=== PATIENT | male | born 1965 | race Caucasian/White ===

== ENCOUNTER 2024-03-03 10:02 | Emergency (ER) | payer MEDICARE ==
[2024-03-03] MEDS ORDERED: Ondansetron PF 4 MG/2 ML Vial ONE (10:36)
[2024-03-03 10:45] LABS: #Basophils 0.05 10x3/uL (0.0-0.2); #Eosinphils Less than 0.03 10x3/uL (0.0-0.7); %Basophils 0.6 % (0.0-1.0); %Lymphocytes 9.6 % (21.0-51.0); %Monocytes 3.8 % (0.0-10.0); %Neutrophils 85.7 % (42.0-75.0); Hematocrit 53.8 % (42.0-52.0); Hemoglobin 17.8 g/dL (14.0-18.0); Mean Corpuscular HGB CONC 33.1 g/dL (32.0-36.0); Mean Corpuscular Hemoglobin 32.4 pg (27.0-31.0); Mean Corpuscular Volume 97.8 fL (78.0-98.0); Platelet Count 263 10x3/uL (130-400); RBC Distribution Width 13.8 % (11.5-14.5)
[2024-03-03 11:20] LABS: ALT (SGPT) 12 U/L (8-55); AST (SGOT) 18 U/L (5-34); Albumin 4.2 g/dL (3.5-5.0); Alkaline Phosphatase 69 U/L (40-110); Anion Gap 16 mmol/L (10-20); BUN (Urea Nitrogen) 13 mg/dL (8.4-25.7); Bilirubin, Total 0.5 mg/dL (0.2-1.2); Calc. Creatinine Clearance 0 mL/min (70-130); Calcium 10.2 mg/dL (7.8-10.44); Carbon Dioxide 27 mmol/L (22-29); Chloride 103 mmol/L (98-107); Estimated GFR 79; Globulin 3.7 g/dL (2.4-3.5); Glucose 142 mg/dL (70-105); Lipase 16 U/L (8-78); Potassium 4.5 mmol/L (3.5-5.1); Protein, Total 7.9 g/dL (6.0-8.3); Sodium 141 mmol/L (136-145)
[2024-03-03] MEDS ORDERED: Iopamidol-370 76% 500 ML MDV (1 ML CHARGE) ONE (11:33)
[2024-03-03 11:34] LABS: Troponin I 0.011 ng/mL (< 0.028)
[2024-03-03] MEDS ORDERED: Metoclopramide HCl 10 MG (2 mL) VIAL ONE (12:03)
[2024-03-03] MEDS ORDERED: diphenhydrAMINE 50 MG/ML VIAL ONE (12:05)
[2024-03-03] MEDS ORDERED: Mag-Al 1200 mg/1200 mg/30 ML UDCUP PO SCH (12:15)
[2024-03-03] MEDS ORDERED: Morphine 4 MG/ML VIAL ONE (13:53)
[2024-03-03 14:15] LABS: Bacteria/HPF None Seen HPF (None Seen); Bilirubin Negative (Negative); Blood, Urine Negative (Negative); CAUTI Indications for Culture Pelvic or flank pain; Clarity Extra Turbid (Clear); Glucose, Urine (Dipstick) Normal (Negative); Ketone, Urine 20 mg/dL (Negative); Leukocyte Negative Leu/uL (Negative); Nitrite Negative (Negative); Protein, Urine (Dipstick) 50 mg/dL (Neg-Trace); RBC/HPF None Seen HPF (0-3); Specific Gravity, Urine 1.026 (1.002-1.036); Squamous Epithelial 0-3 HPF (0-3); WBC/HPF 0-3 HPF (0-3)
[2024-03-03] MEDS ORDERED: Promethazine HCl 12.5 MG in Sodium Chloride 0.9% 50 ML IVPB SCH (14:15)
[2024-03-03 14:16] LABS: Urine Culture Reflex No No
== END 2024-03-03 15:30 | disposition home or self-care (01) ==
LOC: ERS 10:02
DX: K29.00 Acute gastritis without bleeding (principal); I71.40 Abdominal aortic aneurysm, without rupture, unspecified; I10 Essential (primary) hypertension; F17.290 Nicotine dependence, other tobacco product, uncomplicated; Z79.899 Other long term (current) drug therapy
CPT/HCPCS: 71045; 71275; 74174; 80053; 81001; 83605; 83690; 84484; 85025; 93005; 96365; 96367; 96375; 99285; J1200; J2270; J2405; J2550; J2765; Q9967; 36415

== ENCOUNTER 2024-03-14 06:14 | Observation (INO) | payer MEDICARE ==
[2024-03-14] MEDS ORDERED: Morphine 4 MG/ML VIAL ONE (06:21)
[2024-03-14] MEDS ORDERED: Ondansetron PF 4 MG/2 ML Vial ONE ×2 (06:21→07:05)
[2024-03-14] MEDS ORDERED: Nitroglycerin 0.4 MG TAB 1 EACH ONE (06:28)
[2024-03-14 06:43] LABS: #Basophils 0.08 10x3/uL (0.0-0.2); %Basophils 0.9 % (0.0-1.0); %Eosinophils 4.1 % (0.0-10.0); %Lymphocytes 17.7 % (21.0-51.0); %Neutrophils 70.1 % (42.0-75.0); Hematocrit 51.8 % (42.0-52.0); Hemoglobin 17.5 g/dL (14.0-18.0); Mean Corpuscular HGB CONC 33.8 g/dL (32.0-36.0); Mean Corpuscular Hemoglobin 32.9 pg (27.0-31.0); Mean Corpuscular Volume 97.4 fL (78.0-98.0); Mean Platelet Volume 8.8 fL (7.4-10.4); Platelet Count 296 10x3/uL (130-400); RBC Distribution Width 13.7 % (11.5-14.5); Red Blood Cell (RBC) Count 5.32 mill/uL (4.70-6.10)
[2024-03-14 07:20] LABS: ALT (SGPT) 14 U/L (8-55); AST (SGOT) 16 U/L (5-34); Albumin 3.9 g/dL (3.5-5.0); Alkaline Phosphatase 76 U/L (40-110); Anion Gap 16 mmol/L (10-20); BUN (Urea Nitrogen) 9 mg/dL (8.4-25.7); Bilirubin, Total 0.9 mg/dL (0.2-1.2); Calc. Creatinine Clearance 0 mL/min (70-130); Calcium 9.3 mg/dL (7.8-10.44); Carbon Dioxide 24 mmol/L (22-29); Chloride 102 mmol/L (98-107); Estimated GFR 98; Globulin 3.4 g/dL (2.4-3.5); Glucose 140 mg/dL (70-105); Lipase 21 U/L (8-78); Potassium 4.3 mmol/L (3.5-5.1); Protein, Total 7.3 g/dL (6.0-8.3); Sodium 138 mmol/L (136-145)
[2024-03-14 08:14] LABS: Troponin I Less than 0.010 ng/mL (< 0.028)
[2024-03-14] MEDS ORDERED: Pantoprazole 40 MG VIAL ONE (08:46)
[2024-03-14] MEDS ORDERED: Famotidine/PF 20 mg/2ml Vial ONE (08:46)
[2024-03-14] MEDS ORDERED: Haloperidol Lactate 5 MG/ML VIAL ONE (09:02)
[2024-03-14] MEDS ORDERED: Ondansetron ODT 4 MG TAB PO PRN (09:20)
[2024-03-14] MEDS ORDERED: Milk Of Magnesia 30 ML UDCUP ONE (09:28)
[2024-03-14] MEDS ORDERED: Lisinopril 20 MG TAB ONE (09:40)
[2024-03-14] MEDS: Lisinopril 10 MG TAB PO SCH (09:42)
[2024-03-14] MEDS ORDERED: Iopamidol-370 76% 500 ML MDV (1 ML CHARGE) ONE (09:52)
[2024-03-14] MEDS: Sodium Chloride 0.9% 1,000 ML IV SCH (10:36)
[2024-03-14] MEDS ORDERED: Acetaminophen 325 MG TAB ONE (10:42)
[2024-03-14] MEDS: Acetaminophen 650 MG Suppository PR PRN (10:43)
[2024-03-14 11:53] LABS: Troponin I 0.011 ng/mL (< 0.028)
[2024-03-14 12:50] VITALS: BMI 23.3
[2024-03-14] MEDS: Ondansetron PF 4 MG/2 ML Vial IVP PRN (13:17)
[2024-03-14 14:37] LABS: Troponin I 0.014 ng/mL (< 0.028)
[2024-03-14] MEDS: Metoclopramide HCl 10 MG (2 mL) VIAL IVP PRN (15:25)
[2024-03-14] MEDS: hydrALAZINE 20 MG/ML VIAL SLOW IVP SCH (16:07)
[2024-03-14] MEDS: Morphine 2 MG/ML VIAL SLOW IVP SCH (16:09)
[2024-03-14] MEDS: Pantoprazole 40 MG VIAL IVP SCH (20:01)
[2024-03-15 04:01] LABS: #Basophils 0.08 10x3/uL (0.0-0.2); %Basophils 1.1 % (0.0-1.0); %Eosinophils 9.5 % (0.0-10.0); %Lymphocytes 27.6 % (21.0-51.0); %Monocytes 9.9 % (0.0-10.0); %Neutrophils 51.8 % (42.0-75.0); Hematocrit 47.8 % (42.0-52.0); Hemoglobin 16.1 g/dL (14.0-18.0); Mean Corpuscular HGB CONC 33.7 g/dL (32.0-36.0); Mean Corpuscular Hemoglobin 32.2 pg (27.0-31.0); Mean Corpuscular Volume 95.6 fL (78.0-98.0); Mean Platelet Volume 8.8 fL (7.4-10.4); Platelet Count 271 10x3/uL (130-400); RBC Distribution Width 13.7 % (11.5-14.5)
[2024-03-15 04:18] LABS: Hemoglobin A1c 5.1 % (4.0-6.0)
[2024-03-15 04:24] LABS: Anion Gap 14 mmol/L (10-20); BUN (Urea Nitrogen) 10 mg/dL (8.4-25.7); Calc. Creatinine Clearance 97 mL/min (70-130); Calcium 8.9 mg/dL (7.8-10.44); Carbon Dioxide 21 mmol/L (22-29); Chloride 106 mmol/L (98-107); Estimated GFR 99; Glucose 94 mg/dL (70-105); Potassium 4.5 mmol/L (3.5-5.1); Sodium 136 mmol/L (136-145)
[2024-03-15 08:55] VITALS: TEMP 98.3
[2024-03-15] MEDS ORDERED: Lisinopril 20 MG TAB PO SCH (09:00)
[2024-03-15] MEDS: Enoxaparin 40 MG (0.4 mL) SYRINGE SC SCH (09:40)
[2024-03-15] MEDS: Lisinopril 20 MG TAB PO SCH (09:40)
[2024-03-15] MEDS ORDERED: Regadenoson 0.4 MG/5 ML SYRINGE ONE (11:24)
[2024-03-15] MEDS: Acetaminophen 325 MG TAB PO PRN (12:04)
[2024-03-15] MEDS: Lidocaine 2% Viscous Solution 10 ML, Aluminum & Magnesium Hydroxide 30 ML SSW SCH (12:42)
[2024-03-15 12:48] VITALS: BMI 23.3
[2024-03-15 16:13] VITALS: BP 183/104
== END 2024-03-15 18:43 | disposition home or self-care (01) ==
LOC: ERS 06:14 → SUATTDRO 06:14 → ERHOLD 09:10 → 2SW 12:21
PROVIDERS: ADMIT Family Medicine; ATTEND Internal Medicine
DX: R07.9 Chest pain, unspecified (principal); I10 Essential (primary) hypertension; F17.210 Nicotine dependence, cigarettes, uncomplicated; F43.10 Post-traumatic stress disorder, unspecified; F41.9 Anxiety disorder, unspecified; K21.9 Gastro-esophageal reflux disease without esophagitis; R19.7 Diarrhea, unspecified; I16.0 Hypertensive urgency; Z88.2 Allergy status to sulfonamides; Z90.49 Acquired absence of other specified parts of digestive tract
CPT/HCPCS: 71045; 71275; 74174; 78452; 80048; 80053; 83036; 83690; 84443; 84484 ×2; 85025 ×2; 93005; 93017; 96361; 96374; 96375 ×2; 96376 ×3; 99285; A9502; C9113; G0378 ×3; J0360; J1630; J2270; J2272; J2405; J2765 ×2; J2785 ×2; J7050; Q9967; S0028; 36415